=== PATIENT | female | born 1955 | race Caucasian/White ===

== ENCOUNTER 2019-01-03 10:08 | Outpatient (CLI) | payer MEDICARE ==
[2019-01-03] MEDS ORDERED: Iopamidol 370 76% 100 ML VIAL ONE (13:39)
--- NOTE | 2019-01-03 15:04 | CT ---
CT ANGIOGRAM CHEST WITH CONTRAST: HISTORY: Ascending aorta enlargement. COMPARISON: Chest radiograph from 2015. FINDINGS: CT angiogram chest performed after the intravenous administration of contrast. Three-D rendering is provided. The ascending aorta measures up to 3.5 cm. No aneurysmal dilatation. Transverse and descending thor acic aorta are normal. Pulmonary trunk size is normal. No proximal sentinel pulmonary arterial filling defect is seen on th is limited examination. No pericardial effusion. Bilateral breast implants. No axillary or internal mammary adenopathy. The limited evaluation of the upper abdomen. There is a small hypodensity in hepatic segment 5, likely a cyst, and mild reservoir effect of the extrahepatic biliary system. There is mild dilatation of the main pancreatic duct. There is no acute osseous abnormality. The lungs are without focal airspace consolidation, pneumotho rax, or suspicious mass. IMPRESSION: 1. Mild enlargement of the ascending aorta measuring up to 3.8 cm. No dissection. 2. Normal appearance to the pulmonary arteries. 3. Mild prominence of the main pancreatic duct. Nonemergent followup ERCP/MRCP may be beneficial if clinically warranted. 4. No acute intracranial abnormality. POS: [facility]
== END 2019-01-03 10:09 | disposition home or self-care (01) ==
LOC: CT 10:08
PROVIDERS: ATTEND Nurse Practitioner Family
DX: I77.89 Other specified disorders of arteries and arterioles (principal)
CPT/HCPCS: 71275; 82565; Q9967

== ENCOUNTER 2021-09-13 08:16 | Outpatient (CLI) | payer MEDICARE | END 2021-09-13 08:17 | disposition home or self-care (01) | LOC: RAD 08:16 | PROVIDERS: ATTEND Internal Medicine Critical Care Medicine | DX: R06.00 Dyspnea, unspecified (principal) | CPT/HCPCS: 71046 ==

== ENCOUNTER 2022-05-24 13:00 | Outpatient (CLI) | payer OTHER, MEDICARE | END 2022-05-24 13:01 | disposition home or self-care (01) | LOC: RAD 13:00 | PROVIDERS: ATTEND Internal Medicine Critical Care Medicine | DX: R06.00 Dyspnea, unspecified (principal) | CPT/HCPCS: 71046 ==

== ENCOUNTER 2023-08-17 13:11 | Outpatient (CLI) | payer OTHER ==
[2023-08-17] MEDS ORDERED: Iopamidol 370 76% 100 ML VIAL ONE (13:14)
== END 2023-08-17 13:12 | disposition home or self-care (01) ==
LOC: BICCT 13:11
PROVIDERS: ATTEND Internal Medicine Cardiovascular Disease
DX: I77.89 Other specified disorders of arteries and arterioles (principal); I77.810 Thoracic aortic ectasia
CPT/HCPCS: 71275

== ENCOUNTER 2023-08-17 13:47 | Outpatient (CLI) | payer OTHER | END 2023-08-17 13:48 | disposition home or self-care (01) | LOC: BICMAMMO 13:47 | PROVIDERS: ATTEND Specialist | DX: Z12.31 Encounter for screening mammogram for malignant neoplasm of breast (principal); M85.89 Other specified disorders of bone density and structure, multiple sites; Z80.3 Family history of malignant neoplasm of breast; Z98.82 Breast implant status | CPT/HCPCS: 77063; 77067; 77080; 82565 ==